=== PATIENT | male | born 1980 | race Caucasian/White ===

== ENCOUNTER 2017-10-22 02:37 | Emergency (ER) | payer MEDICAID, OTHER ==
[~2017-10-22] VITALS: Ht 170.2 cm; Wt 59.0 kg
[2017-10-22 02:37] VITALS: Ht 170.2 cm; Wt 59.0 kg
--- NOTE | 2017-10-22 02:51 | ERD ---
ER Documentation Chief Complaint Chief Complaint HPI This is a 37-year-old male brought in by paramedics for a heroin overdose. Patient admits to using heroin. Given Narcan with good response. Awake and alert x4 upon arrival. Denies suicidal homicidal ideation. Denies auditory or visual hallucinations. ROS All systems reviewed and are negative except as per history of present illness. Physical Exam Physical Exam Const: [] Head: Atraumatic Eyes: Normal Conjunctiva ENT: Normal External Ears, Nose and Mouth. Neck: Full range of motion..~ No meningismus. Resp: Clear to auscultation bilaterally Cardio: Regular rate and rhythm, no murmurs Abd: Soft, non tender, non distended. Normal bowel sounds Skin: No petechiae or rashes Back: No midline or flank tenderness Ext: No cyanosis, or edema Neur: Awake and alert Psych: Normal Mood and Affect Procedures/MDM Medical decision-makin-year-old male with heroin overdose. At this point clinically stable. Patient will be discharged home. Advised to stop using heroin. EKG: Rate/Rhythm: Sinus tachycardia QRS, ST, T-waves: [No changes consistent w/ acute ischemia] Impression: [No evidence of ischemia or arrhythmia] Departure Diagnosis: Primary Impression: Accidental overdose Encounter type: initial encounter Qualified Code: T50.901A - Accidental overdose, initial encounter Condition: Stable NOEMÍ ELIZONDO Oct 22, 2017 02:51
[2017-10-22 03:33] VITALS: BP 138/96; PULSE 104; RESP 18; TEMP 98.8
== END 2017-10-22 04:00 | disposition home or self-care (01) ==
LOC: E/R 02:37
DX: T40.1X1A Poisoning by heroin, accidental (unintentional), initial encounter (principal); R00.2 Palpitations
CPT/HCPCS: 93005; Z7502

== ENCOUNTER 2018-02-19 17:16 | Emergency (ER) | END 2018-02-19 19:50 | disposition home or self-care (01) ==